=== PATIENT | male | born 1930 | race Caucasian/White ===

== ENCOUNTER 2016-08-11 17:49 | Inpatient (IN) | payer OTHER, BC ==
[~2016-08-11] VITALS: Ht 175.3 cm; Wt 81.2 kg
--- NOTE | ~2016-08-11 | EKG ---
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1930 Requested By: Elyssa Brice Order Number: [id number] MD: Bertin Loomis Measurements Intervals [place] Rate: 118 P: -85 NE: 126 QRS: -7 QRSD: 83 T: 65 QT: 346 QTc: 485 Interpretive Statements Atrial fibrillation with a rapid ventricular response Nonspecific ST and T-wave abnormality Borderline prolonged QT interval Compared to ECG 08/11/2016 18:09:35 No significant change was found Electronically Signed On 08-13-2016 7:45:10 CDT by Bertin Loomis [email or web address] <ELECTRONICALLY SIGNED> By: Bertin Loomis MD, [facility] 08/13/16 0745 54 54 Bertin Loomis MD, [facility] /EPI
--- NOTE | ~2016-08-11 | EKG ---
[place] [address] [facility] [place] [address] ELECTROCARDIOGRAM REPORT Name: JULITO ANDERSEN JUDITH Room #: 312-P ADM IN M.R.#: [id number] Admission: 08/11/16 Attend Phys: Guy Ugalde MD Discharge: Date of : 34 Report #: [id number] THIS REPORT FOR: //name// 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1930 Requested By: Tyrone Dubon Order Number: [id number] MD: Measurements Intervals [place] Rate: 118 P: -85 GA: 126 QRS: -7 QRSD: 83 T: 65 QT: 346 QTc: 485 Interpretive Statements Sinus tachycardia with irregular rate Low voltage, extremity leads Borderline repolarization abnormality Borderline prolonged QT interval Compared to ECG 08/06/2015 07:42:12 Low QRS voltage now present Sinus rhythm no longer present Atrial premature complex(es) no longer present ST (T wave) deviation no longer present [email or web address] By: 54 54 [place], [place] /EPI
--- NOTE | ~2016-08-11 | HC ---
[facility] [place] [address] CONSULTATION Name: JULITO ANDERSEN Room #: 312-P [facility] IN M.R.#: [id number] Admission: 08/11/16 Attend Phys: Luisito James Discharge: Date of : 34 Report #: [id number] THIS REPORT FOR: //name// CC: Luiz Cristina REASON FOR CONSULTATION: Atrial fibrillation. HISTORY OF PRESENT ILLNESS: The patient is an 86-year-old gentleman with a history of prior stroke and expressive aphasia. He may have some underlying cognitive problems as well. He was transported to the Emergency Department when his family noted shaking chills and temperature of an excess of 102 degrees. He was seen in the Emergency Department where he was hypoxemic and in atrial fibrillation with a moderate ventricular response. I was asked to see him in light of his atrial fibrillation. He has a long history of paroxysmal atrial fibrillation for which he has been maintained on dabigatran and diltiazem. He is not aware specifically of any symptoms with this atrial dysrhythmia. Shortly after receiving intravenous Cardizem, he converted to sinus rhythm, and he has been maintained in sinus rhythm since admission. ALLERGIES: He is allergic to ASPIRIN, AGGRENOX, and IODONATED CONTRAST. MEDICATIONS: Include Flomax 0.8 mg daily, diltiazem CD 120 mg daily, atorvastatin 40 mg daily, dabigatran 150 mg twice daily, tramadol 50 mg as needed. PAST MEDICAL HISTORY: Medical records have been reviewed and include a history of internal carotid artery occlusion, coronary artery disease with prior stenting, paroxysmal atrial fibrillation, stroke with expressive aphasia, hepatocellular carcinoma excision in 2002, COPD, prostate cancer with radical prostatectomy, dyslipidemia, right hip fracture with repair. SOCIAL HISTORY: He is a current nonsmoker. FAMILY HISTORY: Unremarkable for premature coronary artery disease. REVIEW OF SYSTEMS: All systems negative except as that noted above. PHYSICAL EXAMINATION: GENERAL: This is an elderly gentleman who is alert. He has got expressive aphasia. He is disoriented. VITAL SIGNS: Blood pressure is 106/54, heart rate of 54 and regular. He is afebrile currently. Yesterday, maximum temperature was 102.1 degrees, 5 feet 9 inches tall, 179 pounds. HEENT: There are neither xanthelasma, subcutaneous xanthomata, oral mucosal or digital cyanosis or kyphoscoliosis present. [facility] [address] [place] [address] CONSULTATION Name: JULITO ANDERSEN JUDITH Room #: 312-P [facility] IN M.R.#: [id number] Admission: 08/11/16 Attend Phys: Luisito James Discharge: Date of : 34 Report #: [id number] CHEST: Clear to auscultation and percussion. CARDIOVASCULAR: Regular rate and rhythm with normal S1 and S2. No murmurs or rubs. ABDOMEN: Soft and nontender. EXTREMITIES: Without cyanosis, clubbing or edema. Radial pulses are 2+. NEUROLOGIC: He is alert with a nonfocal exam. Prior echocardiogram about a year ago demonstrated normal ejection fraction. Significant valvular heart disease was absent. LABORATORY DATA: Sodium is 133, potassium 4.1, creatinine 0.9, magnesium 1.7, albumin 2.9. Troponin of 0. White count 7.9, hemoglobin 12, hematocrit 38, platelet count 238. Chest x-ray demonstrates cardiomegaly. Calcified aortic arch. EKG: Atrial fibrillation with minimal nonspecific ST segment abnormality. IMPRESSION: 1. Febrile illness, possible early sepsis. 2. Paroxysmal atrial fibrillation, now sinus rhythm. There is a long history of paroxysmal atrial fibrillation and recurrence in the setting of high fevers is not unexpected. 3. Cerebrovascular accident with expressive aphasia. 4. Chronic obstructive pulmonary disease. 5. Encephalopathy; possible dementia. 6. Hypertension. 7. Dyslipidemia. 8. History of urinary retention. 9. Hypercoagulable condition. RECOMMENDATIONS: 1. Continued use of oral Cardizem and dabigatran. 2. Hope to avoid antiarrhythmic therapy. Given the asymptomatic nature of this rhythm disturbance, no additional therapy is needed. His elevated rates at the time of presentation are likely related to his high fevers. I will be available as issues or problems arise. Thank you for asking me to participate in this patient's care. <ELECTRONICALLY SIGNED> By: Bertin Loomis MD, [facility] 08/13/16 1619 0825 1758 Bertin Loomis MD, FAC /nt
--- NOTE | ~2016-08-11 | EKG ---
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1930 Requested By: Dina Blackwood Order Number: [id number] MD: Bertin Loomis Measurements Intervals [place] Rate: 150 P: OR: QRS: -23 QRSD: 98 T: -19 QT: 314 QTc: 496 Interpretive Statements Atrial fibrillation with rapid V-rate Borderline left axis deviation Low voltage, extremity leads Repolarization abnormality, prob rate related Artifact in lead(s) II,III,aVF,V1,V2,V3 Compared to ECG 08/06/2015 07:42:12 Sinus rhythm no longer present Electronically Signed On 08-12-2016 9:02:47 CDT by Bertin Loomis [email or web address] <ELECTRONICALLY SIGNED> By: Bertin Loomis MD, [facility] 08/12/16 0902 180 180 Bertin Loomis MD, [facility] /EPI
[~2016-08-11 17:49] MED LIST: ACETAMINOPHEN325 MG PO; ADULT LOW DOSE81 MG PO; BENADRYL25 MG PO; BISACODYL SUPP10 MG RECTAL; CARDIZEM CD180 MG PO; COLACE100 MG PO; COUMADIN 5 MG TA5 M1 PO; DOXYCYCLINE 10100 MG PO; ENDOCET 5-3251 EACH PO; FLOMAX0.4 MG PO; IRON325 PO; LEVAQUIN 500 M500 M2 PO; LIPITOR20 MG PO; MAG DELAY64 MG PO; MIRALAX17 GM PO; NORCO 5-325 TA1 EACH; ONDANSETRON HCL4 M2 PO; PACERONE 200 M200 M1 PO; PLAVIX 75 MG TA75 MG PO; PRADAXA150 MG PO; PREDNISONE 20 M20 M1 PO; SENNA8.6 MG PO; TRAMADOL 50 MG50 MG PO; TYLENOL EX-STR500 M2 PO
[2016-08-11 17:50] VITALS: BP 137/84
[2016-08-11 18:40] LABS: HEMATOCRIT 38.5 % (42.0-52.0); HEMOGLOBIN 12.5 gm/dL (14.0-18.0); MCH 28.6 pg (26.0-34.0); MCHC 32.6 g/dL (28.0-37.0); MCV 87.8 fL (80.0-100.0); PLATELET COUNT 238 thou/uL (150-400); RBC 4.38 mil/uL (4.50-6.00); RDW 16.7 % (10.5-14.5); WBC 7.9 thou/uL (4.0-11.0)
[2016-08-11 18:44] LABS: MANUAL DIFF YES
[2016-08-11 18:48] LABS: ANION GAP 7 mmol/L (7-16); BUN 12 mg/dL (7-18); CHLORIDE 100 mmol/L (98-107); CO2 27 mmol/L (21-32); CREATININE 0.9 mg/dL (0.7-1.3); GLUCOSE 109 mg/dL (74-106); POTASSIUM 4.1 mmol/L (3.5-5.1); SODIUM 134 mmol/L (136-145)
[2016-08-11 18:52] LABS: APTT 41.8 Seconds (24.5-32.8); INR 1.3; PROTIME 13.5 Seconds (9.3-11.4)
[2016-08-11 18:54] LABS: ALBUMIN 2.9 g/dL (3.4-5.0); ALKALINE PHOSPHATASE 107 U/L (46-116); SGOT 20 U/L (15-37); SGPT 15 U/L (30-65); TOTAL BILIRUBIN 0.5 mg/dL (<0.1-1.0); TOTAL PROTEIN 7.9 g/dL (6.4-8.2); TROPONIN-I < 0.04 ng/mL (<0.04-0.07)
[2016-08-11 19:03] LABS: MAGNESIUM 1.7 mg/dL (1.8-2.4); NT-PRO BRAIN NAT PEPTIDE 660 pg/mL (<300)
[2016-08-11 19:06] LABS: URINE BILIRUBIN NEGATIVE (Negative); URINE BLOOD 3+ (Negative); URINE COLOR YELLOW; URINE GLUCOSE-RANDOM* NEGATIVE (Negative); URINE KETONES NEGATIVE (Negative); URINE LEUKOCYTES-REFLEX NEGATIVE (Negative); URINE PROTEIN (DIPSTICK) TRACE (Negative); URINE SPECIFIC GRAVITY >= 1.030 (1.003-1.035); URINE UROBILINOGEN 0.2 E.U./dl (0.2-1.0)
[2016-08-11 19:14] LABS: ABSOLUTE NEUTROPHILS 6.4 thou/uL (1.4-8.2); ANISOCYTOSIS 1+; TOTAL CELL COUNT 100
[2016-08-11 19:15] LABS: POLYCHROMASIA OCCASIONAL
[2016-08-11 19:16] LABS: CASTS None Seen /LPF (None Seen); CRYSTALS None Seen /LPF (None Seen); SQUAMOUS None Seen /LPF (0-3); URINE RBC 3-10 Few /HPF (0-2); URINE WBC-REFLEX 0-5 Rare /HPF (0-5)
[2016-08-11 19:27] LABS: CK-MB MASS < 0.5 ng/mL (<0.5-3.6)
[2016-08-11 20:30] VITALS: BP 89/62
[2016-08-11] MEDS ORDERED: CARDIZEM CD120 MG PO (21:17)
[2016-08-11 23:19] VITALS: BP 140/66
[2016-08-12 04:16] VITALS: BP 116/65
[2016-08-12 07:44] VITALS: BP 106/54
[2016-08-12 09:14] LABS: CALCIUM 7.9 mg/dL (8.5-10.1); CREATININE 0.7 mg/dL (0.7-1.3); POTASSIUM 3.6 mmol/L (3.5-5.1)
[2016-08-12 12:00] VITALS: BP 133/75
[2016-08-12 16:00] VITALS: BP 152/72
[2016-08-13 04:00] VITALS: BP 170/85
[2016-08-13 09:03] VITALS: BP 130/75
[2016-08-13 11:35] VITALS: BP 150/72
[2016-08-13 16:02] VITALS: BP 138/71
[2016-08-13 19:45] VITALS: BP 162/63
[2016-08-14 04:00] VITALS: BP 143/79
[2016-08-14 07:07] VITALS: BP 158/74
[2016-08-14] MEDS ORDERED: CEFUROXIME500 MG PO (10:23)
[2016-08-14 11:54] VITALS: BP 160/80
== END 2016-08-14 14:30 | DRG 871 ==
LOC: ER 17:49 → 3N 19:33 → EROBS 19:33 → 3N 20:31
PROVIDERS: Emergency Medicine; Hospitalist; Physician Assistant
DX: A41.9 Sepsis, unspecified organism (principal); J96.21 Acute and chronic respiratory failure with hypoxia; J18.9 Pneumonia, unspecified organism; G93.40 Encephalopathy, unspecified; D68.59 Other primary thrombophilia; R47.01 Aphasia; N39.0 Urinary tract infection, site not specified; J44.9 Chronic obstructive pulmonary disease, unspecified; I10 Essential (primary) hypertension; E78.5 Hyperlipidemia, unspecified; E86.0 Dehydration; I25.10 Atherosclerotic heart disease of native coronary artery without angina pectoris; I48.0 Paroxysmal atrial fibrillation; K59.00 Constipation, unspecified; I65.29 Occlusion and stenosis of unspecified carotid artery; F03.90 Unspecified dementia, unspecified severity, without behavioral disturbance, psychotic disturbance, mood disturbance, and anxiety; Z79.899 Other long term (current) drug therapy; Z95.820 Peripheral vascular angioplasty status with implants and grafts; Z85.46 Personal history of malignant neoplasm of prostate; Z88.6 Allergy status to analgesic agent; Z88.8 Allergy status to other drugs, medicaments and biological substances; Z91.041 Radiographic dye allergy status; Z87.81 Personal history of (healed) traumatic fracture; Z82.49 Family history of ischemic heart disease and other diseases of the circulatory system; Z86.73 Personal history of transient ischemic attack (TIA), and cerebral infarction without residual deficits
CPT/HCPCS: 10096